=== PATIENT | male | born 1945 | race Hispanic/Latino ===

== ENCOUNTER 2020-08-12 23:36 | Emergency (ER) | payer MEDICARE ==
[2020-08-13] MEDS ORDERED: MORPHINE 4 MG/1 ML INJ IV ONE (01:38)
--- NOTE | 2020-08-13 01:42 | Emergency Department Report ---
HPI - General Chief Complaint: GI Bleed Time Seen by Provider: 08/13/20 01:23 - HPI HPI: This is a 75-year-old male who presents to the emergency department with 2 main complaints. First, the patient is concerned that he could have some "internal bleeding" in reference to an upper GI bleed. Patient says that he had this issue 3 weeks ago and was seen and admitted at [facility]. Patient says that he underwent an EGD and "they found 3 ulcers." Patient has been having some abdominal pain that started off in his upper abdomen but more re cently is now in the lower abdomen. He also noticed some darker appearing stool, although he admits that it is not as dark as it was when he previously had the GI bleed. Secondly, the patient complains of progressively worsening bilateral lower extremity pain worse on the left. He has some redness and says that he has had some "blisters and oozing." Patient says that he was previously diagnosed with phlebitis. He has a past medical history of CHF, coronary artery disease with previous AR, hypertension. ED Past Medical Hx - Past Medical History Previous Medical History?: Yes Additional medical history: CHF AR x 8 yrs ago - Social History Smoking Status: Never Smoker Substance Use Type: None - Medications Home Medications: Home Medications Medication Instructions Recorded Confirmed Last Taken Type HYDROcodone/APAP 5-325 [[place] 1 each PO Q6HR PRN #12 tablet 08/13/20 Unknown Rx 5/325] Omeprazole 20 mg PO QDAY #15 capsule. 08/13/20 Unknown Rx Sulfamethoxazole/Trimethoprim 1 each PO BID #14 tablet 08/13/20 Unknown Rx [Bactrim DS TAB] ED Review of Systems ROS: Stated complaint: DARK STOOL Other details as noted in HPI Comment: All other systems reviewed and negative Constitutional: denies: chills, fever Eyes: denies: eye pain, vision change ENT: denies: ear pain, throat pain Respiratory: denies: cough, shortness of breath Cardiovascular: denies: chest pain, palpitations Gastrointestinal: abdominal pain, melena. denies: vomiting Genitourinary: denies: dysuria, discharge Musculoskeletal: arthralgia, myalgia Skin: change in color. denies: pruritus Neurological: denies: headache, weakness Physical Exam - Physical Exam Vital Signs: Vital Signs 08/12/20 23:47 Temperature 98.7 F Pulse Rate 85 Respiratory 20 Rate Blood Pressure 143/67 O2 Sat by Pulse 93 Oximetry Physical Exam: GENERAL: The patient is well-developed well-nourished. HENT: Normocephalic. Atraumatic. Patient has moist mucous membranes. EYES: Extraocular motions are intact. NECK: Supple. Trachea is midline. CHEST/LUNGS: Clear to auscultation. There is no respiratory distress noted. HEART/CARDIOVASCULAR: Regular. There is no tachycardia. There is no murmur. ABDOMEN: Abdomen is soft. Mild generalized abdominal tenderness to palpation. No guarding. Patient has normal bowel sounds. SKIN: There is erythema and warmth to the distal bilateral lower extremities, but no fluctuance, bleeding, discharge. NEURO: The patient is awake, alert, and oriented. The patient is cooperative. The patient has no focal neurologic deficits. Normal speech. MUSCULOSKELETAL: There is tenderness to palpation along the distal left lower extremity. There is no limitation range of motion. RECTAL: Deferred/refused. ED Course Vital Signs 08/12/20 23:47 Temperature 98.7 F Pulse Rate 85 Respiratory 20 Rate Blood Pressure 143/67 O2 Sat by Pulse 93 Oximetry - Reevaluation(s) Reevaluation #1: 08/13/20 05:45 Lab Results 08/13/20 08/13/20 08/13/20 Range/Units 01:40 01:40 01:40 WBC 7.4 (4.5-11.0) K/mm3 RBC 3.70 (3.65-5.03) M/mm3 Hgb 10.7 L (11.8-15.2) gm/dl Hct 33.1 L (35.5-45.6) % MCV 90 (84-94) fl MCH 29 (28-32) pg MCHC 32 (32-34) % RDW 17.8 H (13.2-15.2) % Plt Count 249 (140-440) K/mm3 Lymph % (Auto) 12.5 L (13.4-35.0) % Harper % (Auto) 8.6 H (0.0-7.3) % Eos % (Auto) 0.7 (0.0-4.3) % Baso % (Auto) 0.7 (0.0-1.8) % Lymph # (Auto) 0.9 L (1.2-5.4) K/mm3 Harper # (Auto) 0.6 (0.0-0.8) K/mm3 Eos # (Auto) 0.1 (0.0-0.4) K/mm3 Baso # (Auto) 0.1 (0.0-0.1) K/mm3 Seg Neutrophils % 77.5 H (40.0-70.0) % Seg Neutrophils # 5.8 (1.8-7.7) K/mm3 PT 13.9 (12.2-14.9) Sec. INR 1.06 (0.87-1.13) APTT 30.6 (24.2-36.6) Sec. Sodium 137 (137-145) mmol/L Potassium 3.7 (3.6-5.0) mmol/L Chloride 93.4 L (98-107) mmol/L Carbon Dioxide 30 (22-30) mmol/L Anion Gap 17 mmol/L BUN 10 (9-20) mg/dL Creatinine 0.9 (0.8-1.3) mg/dL Estimated GFR > 60 ml/min BUN/Creatinine Ratio 11 % Glucose 161 H (75-100) mg/dL Calcium 9.7 (8.4-10.2) mg/dL Total Bilirubin (0.1-1.2) mg/dL Direct Bilirubin (0-0.2) mg/dL Indirect Bilirubin mg/dL AST (5-40) units/L ALT (7-56) units/L Alkaline Phosphatase (35-129) units/L Total Protein (6.3-8.2) g/dL Albumin (3.9-5) g/dL Albumin/Globulin Ratio % Urine Color (Yellow) Urine Turbidity (Clear) Urine pH (5.0-7.0) Ur Specific [place] (1.003-1.030) Urine Protein (Negative) mg/dL Urine Glucose (UA) (Negative) mg/dL Urine Ketones (Negative) mg/dL Urine Blood (Negative) Urine Nitrite (Negative) Urine Bilirubin (Negative) Urine Urobilinogen (<2.0) mg/dL Ur Leukocyte Esterase (Negative) Urine WBC (Auto) (0.0-6.0) /HPF Urine RBC (Auto) (0.0-6.0) /HPF U Epithel Cells (Auto) (0-13.0) /HPF 08/13/20 08/13/20 Range/Units 01:40 Unknown WBC (4.5-11.0) K/mm3 RBC (3.65-5.03) M/mm3 Hgb (11.8-15.2) gm/dl Hct (35.5-45.6) % MCV (84-94) fl MCH (28-32) pg MCHC (32-34) % RDW (13.2-15.2) % Plt Count (140-440) K/mm3 Lymph % (Auto) (13.4-35.0) % Harper % (Auto) (0.0-7.3) % Eos % (Auto) (0.0-4.3) % Baso % (Auto) (0.0-1.8) % Lymph # (Auto) (1.2-5.4) K/mm3 Harper # (Auto) (0.0-0.8) K/mm3 Eos # (Auto) (0.0-0.4) K/mm3 Baso # (Auto) (0.0-0.1) K/mm3 Seg Neutrophils % (40.0-70.0) % Seg Neutrophils # (1.8-7.7) K/mm3 PT (12.2-14.9) Sec. INR (0.87-1.13) APTT (24.2-36.6) Sec. Sodium (137-145) mmol/L Potassium (3.6-5.0) mmol/L Chloride (98-107) mmol/L Carbon Dioxide (22-30) mmol/L Anion Gap mmol/L BUN (9-20) mg/dL Creatinine (0.8-1.3) mg/dL Estimated GFR ml/min BUN/Creatinine Ratio % Glucose (75-100) mg/dL Calcium (8.4-10.2) mg/dL Total Bilirubin 0.40 (0.1-1.2) mg/dL Direct Bilirubin < 0.2 (0-0.2) mg/dL Indirect Bilirubin 0.2 mg/dL AST 12 (5-40) units/L ALT 7 (7-56) units/L Alkaline Phosphatase 94 (35-129) units/L Total Protein 6.1 L (6.3-8.2) g/dL Albumin 3.6 L (3.9-5) g/dL Albumin/Globulin Ratio 1.4 % Urine Color Colorless (Yellow) Urine Turbidity Clear (Clear) Urine pH 8.0 H (5.0-7.0) Ur Specific [place] 1.004 (1.003-1.030) Urine Protein <15 mg/dl (Negative) mg/dL Urine Glucose (UA) Neg (Negative) mg/dL Urine Ketones Neg (Negative) mg/dL Urine Blood Neg (Negative) Urine Nitrite Neg (Negative) Urine Bilirubin Neg (Negative) Urine Urobilinogen < 2.0 (<2.0) mg/dL Ur Leukocyte Esterase Neg (Negative) Urine WBC (Auto) 0.0 (0.0-6.0) /HPF Urine RBC (Auto) < 1.0 (0.0-6.0) /HPF U Epithel Cells (Auto) < 1.0 (0-13.0) /HPF Reevaluation #2: 08/13/20 05:45 Vital Signs 08/12/20 08/13/20 08/13/20 23:47 01:45 01:46 Temperature 98.7 F 97.9 F Pulse Rate 85 90 82 Respiratory 20 12 11 L Rate Blood Pressure 143/67 143/73 Blood Pressure 143/73 [Right] O2 Sat by Pulse 93 98 94 Oximetry 08/13/20 08/13/20 08/13/20 02:00 02:16 02:30 Temperature Pulse Rate 128 H 101 H 91 H Respiratory 14 17 12 Rate Blood Pressure 143/73 143/73 155/68 Blood Pressure [Right] O2 Sat by Pulse 93 88 89 Oximetry 08/13/20 08/13/20 08/13/20 02:46 03:00 03:16 Temperature Pulse Rate 86 83 85 Respiratory 22 12 17 Rate Blood Pressure 155/68 155/68 155/68 Blood Pressure [Right] O2 Sat by Pulse 95 93 84 Oximetry 08/13/20 08/13/20 08/13/20 03:30 03:46 04:00 Temperature Pulse Rate 90 87 100 H Respiratory 17 14 17 Rate Blood Pressure 145/74 145/74 145/74 Blood Pressure [Right] O2 Sat by Pulse 86 86 Oximetry ED Medical Decision Making - Lab Data Result diagrams: 08/13/20 01:40 08/13/20 01:40 - Radiology Data Radiology results: report reviewed, image reviewed interpreted by me: Abdominal x-ray shows nonspecific nonobstructive bowel gas DUPLEX DOPPLER LOWER EXTREMITY VEINS, BILATERAL INDICATION / CLINICAL INFORMATION: Bilateral leg pain.. TECHNIQUE: Duplex doppler imaging was performed through the veins of both lower extremities using venous compression and other maneuvers. COMPARISON: None available. FINDINGS: RIGHT COMMON FEMORAL VEIN: Negative. RIGHT FEMORAL VEIN: Negative. RIGHT POPLITEAL VEIN: Negative. RI GHT CALF VEINS: Negative. LEFT COMMON FEMORAL VEIN: Negative. LEFT FEMORAL VEIN: Negative. LEFT POPLITEAL VEIN: Negative. LEFT CALF VEINS: Negative. ADDITIONAL FINDINGS: There is no evidence of a popliteal cyst or other abnormality. IMPRESSION: No sonographic evidence for DVT in either lower extremity. BILATERAL LOWER LEGS 4 VIEWS INDICATION / CLINICAL INFORMATION: Bilateral lower leg pain. History of left leg fracture 3 months ago. COMPARISON: None available. FINDINGS: BONES / JOINT(S): There is an acute, oblique fracture of the distal fibular metadiaphysis. An intramedullary ghislaine transfixes a comminuted fracture of the distal left tibial shaft. There is also a comminuted fracture of the distal fibular shaft which appears subacute. SOFT TISSUES: There are bilateral vascular calcifications. ADDITIONAL FINDINGS: None. - Medical Decision Making Regarding the patient's complaint of abdominal discomfort and concern for melena and/or GI bleeding: Patient has some mild generalized abdominal tenderness to palpation, but no guarding. The abdomen is soft, nondistended and nontoxic in appearance. Abdominal x-ray shows nonspecific nonobstructive bowel gas. The patient's hemoglobin level is 10.7. He has a normal-appearing metabolic panel including LFTs. He has deferred/refused a rectal examination to look for melena, gross blood or for further evaluation. The patient admits that the stool was dark, but not tarry black, and not consistent with his previous GI bleed. He has good outpatient follow-up with gastroenterology and has been instructed to follow-up with them in the next few days. He will be placed on a PPI. Regarding the lower extremity pain: On examination the patient appears to have some cellulitis with some erythema and warmth to the distal bilateral lower extremities, but no discharge, bl eeding, fluctuance. An x-ray was done that does not show any subcutaneous gas. The patient has a history of a left lower leg fracture from 3 months ago and radiology reads that there is an intramedullary ghislaine transfixing a comminuted fracture of the distal left tibial shaft and there is also a subacute comminuted fracture of the distal fibular shaft. Radiology also read that there is an acute, oblique fracture of the distal right fibular metadiaphysis. However the patient does not actually have any tenderness to palpation along the distal right lower extremity and this was only seen on AP view, not the lateral view. He also had a bilateral lower extremity venous Doppler ultrasound that was negative for any DVT. The patient will be placed on antibiotics for the cellulitis. He has good outpatient follow-up with an orthopedist. Vital signs have been reassuring throughout his ED course. He will return to the emergency department with any worsening of his symptoms or with any acute distress. Critical Care Time: No Critical care attestation.: If time is entered above; I have spent that time in minutes in the direct care of this critically ill patient, excluding procedure time. ED Disposition Clinical Impression: Abdominal pain Qualifiers: Abdominal location: unspecified location Qualified Code(s): R10.9 - Unspecified abdominal pain Cellulitis Qualifiers: Site of cellulitis: extremity Site of cellulitis of extremity: lower extremity Laterality: unspecified laterality Qualified Code(s): L03.119 - Cellulitis of unspecified part of limb Lower extremity pain Qualifiers: Laterality: unspecified laterality Qualified Code(s): M79.606 - Pain in leg, unspecified Disposition: - TO HOME OR SELFCARE Is pt being admited?: No Condition: Stable Instructions: Cellulitis (ED), Abdominal Pain (ED), Arthralgia (ED) Prescriptions: Sulfamethoxazole/Trimethoprim [Bactrim DS TAB] 1 each PO BID #14 tablet HYDROcodone/APAP 5-325 [[place]e 5/325] 1 each PO Q6HR PRN #12 tablet PRN Reason: Pain Omeprazole 20 mg PO QDAY #15 capsule. Referrals: PRIMARY CAREMD [Primary Care Provider] - 2-3 Days Posting Clerk, Your [Other] - 2-3 Days Orthopedist, Your [Other] - 2-3 Days Forms: Accompanied Note Time of Disposition: 05:34
--- NOTE | 2020-08-13 02:43 | XRay Report ---
ABDOMEN 2 VIEW(S) INDICATION / CLINICAL INFORMATION: Abd pain. COMPARISON: None available. FINDINGS: TUBES / LINES: None. BOWEL GAS PATTERN: There is no evidence of bowel obstruction or mass effect. FREE AIR / EXTRALUMINAL GAS: None seen. ADDITIONAL FINDINGS: There are atherosclerotic calcifications without aneurysm. Moderate spondylosis is noted. IMPRESSION: No acute abnormality. Signer Name: Milind Childs MD Signed: 08/13/2020 2:38 AM Workstation Name: [id number]
[2020-08-13 02:45] LABS: BUN/Creatinine Ratio 11; Blood Urea Nitrogen 10 mg/dL (9-20); Calcium 9.7 mg/dL (8.4-10.2); Hemolysis Index 0
--- NOTE | 2020-08-13 02:45 | XRay Report ---
BILATERAL LOWER LEGS 4 VIEWS INDICATION / CLINICAL INFORMATION: Bilateral lower leg pain. History of left leg fracture 3 months ago. COMPARISON: None available. FINDINGS: BONES / JOINT(S): There is an acute, oblique fracture of the distal fibular metadiaphysis. An intrame dullary ghislaine transfixes a comminuted fracture of the distal left tibial shaft. There is also a comminu los fracture of the distal fibular shaft which appears subacute. SOFT TISSUES: There are bilateral vascular calcifications. ADDITIONAL FINDINGS: None. Signer Name: Milind Childs MD Signed: 08/13/2020 2:41 AM Workstation Name: [id number]
[2020-08-13 02:46] LABS: Alanine Aminotransferase 7 units/L (7-56); Albumin 3.6 g/dL (3.9-5); Basophils # (Auto) 0.1 K/mm3 (0.0-0.1); Basophils % (Auto) 0.7 % (0.0-1.8); Eosinophils # (Auto) 0.1 K/mm3 (0.0-0.4); Eosinophils % (Auto) 0.7 % (0.0-4.3); Hematocrit 33.1 % (35.5-45.6); Hemoglobin 10.7 gm/dl (11.8-15.2); Lymphocytes # (Auto) 0.9 K/mm3 (1.2-5.4); Lymphocytes % (Auto) 12.5 % (13.4-35.0); Mean Corpuscular HGB Conc 32 % (32-34); Mean Corpuscular Volume 90 fl (84-94); Monocytes # (Auto) 0.6 K/mm3 (0.0-0.8); Monocytes % (Auto) 8.6 % (0.0-7.3); Platelet Count 249 K/mm3 (140-440); Red Cell Distribution Width 17.8 % (13.2-15.2)
[2020-08-13 02:53] LABS: Bilirubin,Direct < 0.2 mg/dL (0-0.2)
[2020-08-13 03:06] LABS: INR 1.06 (0.87-1.13)
[2020-08-13 03:07] LABS: Partial Thromboplastin Time 30.6 Sec. (24.2-36.6)
--- NOTE | 2020-08-13 03:18 | Vascular Lab Report ---
DUPLEX DOPPLER LOWER EXTREMITY VEINS, BILATERAL INDICATION / CLINICAL INFORMATION: Bilateral leg pain.. TECHNIQUE: Duplex doppler imaging was performed through the veins of both lower extremities using venous william eric and other maneuvers. COMPARISON: None available. FINDINGS: RIGHT COMMON FEMORAL VEIN: Negative. RIGHT FEMORAL VEIN: Negative. RIGHT POPLITEAL VEIN: Negative. RIGHT CALF VEINS: Negative. LEFT COMMON FEMORAL VEIN: Negative. LEFT FEMORAL VEIN: Negative. LEFT POPLITEAL VEIN: Negative. LEFT CALF VEINS: Negative. ADDITIONAL FINDINGS: There is no evidence of a popliteal cyst or other abnormality. IMPRESSION: No sonographic evidence for DVT in either lower extremity. Signer Name: Milind Childs MD Signed: 08/13/2020 3:14 AM Workstation Name: [id number]
[2020-08-13 04:05] VITALS: BP 145/74
[2020-08-13] MEDS ORDERED: CLINDAMYCIN 600 MG/50 mL 600 MG/50 ML BAG IV ONE (04:11)
[2020-08-13 05:34] LABS: Bilirubin,Urine NEG (Negative); Blood,Urine NEG (Negative); Color,Urine Colorless (Yellow); Protein,Urine <15 mg/dL mg/dL (Negative); RBC,Urine < 1.0 /HPF (0.0-6.0); Urobilinogen,Urine < 2.0 mg/dL (<2.0)
== END 2020-08-13 07:22 | disposition home or self-care (01) ==
LOC: ED 23:36
DX: L03.116 Cellulitis of left lower limb (principal); L03.115 Cellulitis of right lower limb; R10.9 Unspecified abdominal pain; K92.2 Gastrointestinal hemorrhage, unspecified; Z79.899 Other long term (current) drug therapy
CPT/HCPCS: 36415; 73590; 74019; 80048; 80076; 81001; 85025; 85610; 85730; 93970; 96365; 96375; 99285; J2270